=== PATIENT | female | born 1980 | race Caucasian/White ===

== ENCOUNTER 2024-10-17 11:59 | Observation (INO) ==
--- NOTE | 2024-10-17 12:30 | Emergency Department Note ---
Impression & Plan Kidney stone on right side, Nausea ED Provider Note Provider: Damion Callahan MD CHIEF COMPLAINT: Bladder and right flank pain, nausea vomiting HISTORY OF PRESENT ILLNESS: Patient is a 43-year-old female diagnosed with kidney stone yesterday presenting here today due to worsening pain and intractable nausea and vomiting since this morning. No fevers reported. Took her home Zofran and then oxycodone around 9 around 10 tried her meloxicam and vomited around here. Feels quite nauseous. Lower to right flank discomfort. Her bladder feels "distended" to her. States it feels worse than childbirth. Limited fluid intake overnight. No trauma. PAST MEDICAL HISTORY: As noted above MEDICATIONS: Reviewed home medications SOCIAL HISTORY: , dietitian PHYSICAL EXAM: GENERAL: alert and oriented seated up holding emesis bag appears uncomfortable at bedside Head: normocephalic and atraumatic EYES: No injection or icterus with some slight crying. NECK: Trachea midline. Supple. ENT: Mucous membranes pink and moist. LUNGS: Airway patent. No retractions. Breath sounds clear with good air entry bilaterally. HEART: Regular rate and rhythm. No chest wall tenderness ABDOMEN: Soft and non-tender, without guarding or rebound. SKIN: Acyanotic, warm, dry, without rashes EXTREMITIES: Without swelling, tenderness or deformity NEUROLOGICAL: No focal deficits. No aphasia. No facial droop or slurred speech. Ambulatory. PDMP was checked without noted issue. Patient's laboratory studies and imaging reviewed. Differential includes Renal colic, UTI, appendicitis, diverticulitis, mesenteric ischemia, aortic pathology, infections, inflammatory bowel disease, PUD, biliary pathology, as well as other pathologies. IMPRESSION/MEDICAL DECISION MAKING: Repeat basic blood work obtained here today. Reviewed blood work from yesterday including CT imaging showing a 2 mm distal right stone. UA sent today to exclude infection. Afebrile here. Significant nausea vomiting and discomfort. Given IV fluids, Zofran, morphine, and Toradol here. Do not feel there is an urgent need for repeat CT imaging. Bladder scan completed without evidence of significant urinary distention of the bladder. Blood work here without significant anemia or leukocytosis. No significant acute renal dysfunction or electrolyte abnormality. No transaminitis. Urinalysis does not appear infected somewhat concentrated. Again received IV fluids here. Pain is manageable now and nausea is improved. Discussed with her and her at bedside. Again failing oral medications at home and she does not feel comfortable going home at this time given this. Though she is improved at this point did reach out to the [facility] hospitalist as next up unassigned for further observation here. DIAGNOSIS: Right-sided kidney stone, nausea and vomiting DISPOSITION: Hospitalist will evaluate Patient was agreeable with this plan. Past Med/Surg History Problem List (Updated 10/17/24 @ 13:56 by Damion Callahan M.D.) Nausea (Acute) Kidney stone on right side (Acute) Social History Smoking Status: Never smoker Preferred Language: Indonesian Feels Safe at Home: Yes Allergies Allergies Allergy/AdvReac Type Severity Reaction Status Date / Time meperidine [From Demerol] Allergy Severe Rash and Unverified 10/17/24 14:35 Pain Home Meds Home Medications Medication Instructions Recorded Confirmed cetirizine 10 mg tablet (Zyrtec) 10 mg PO DAILY 10/17/24 10/17/24 ergocalciferol (vitamin D2) 1,250 50,000 unit PO WK 10/17/24 10/17/24 mcg (50,000 unit) capsule (Vitamin D2) escitalopram oxalate 5 mg tablet 5 mg PO DAILY 10/17/24 10/17/24 Previous Rx's Medication Instructions Recorded ondansetron 4 mg disintegrating 4 mg PO Q6H PRN nausea and 10/16/24 tablet vomiting #12 tabs oxycodone 5 mg tablet 5 mg PO Q6H PRN pain (scale score 10/16/24 7-10) #16 tabs Results & Data (ED) Vital Signs Vital Signs - 24 hr 10/17/24 12:07 10/17/24 13:00 10/17/24 14:00 Temperature 36.8 C Temperature Source Temporal Artery Scan Pulse Rate 68 Pulse Rate [Radial] 54 L 53 L Pulse Rhythm [Radial] Regular Respiratory Rate 19 18 18 Respiratory Effort / Characteristics Non-Labored Spontaneous Non-Labored Non-Labored Respiratory Depth Normal Normal Normal Respiratory Pattern Regular Regular Blood Pressure 120/66 Blood Pressure [Right Arm] 110/68 99/56 L Blood Pressure Mean 84 Blood Pressure Mean [Right Arm] 82 70 Pulse Oximetry 100 100 96 Oxygen Delivery Method Room Air Room Air Room Air Sepsis Recent Fever Within 48 Hours No Sepsis New/Unexplained Change in Mental Status No Sepsis Action Taken by Nursing No Action Required Laboratory Data 10/17/24 12:20 10/17/24 12:20 Lab Results 10/17/24 Range/Units 12:20 WBC 9.06 (4.8-10.8) K/ul RBC 4.68 (4.20-5.40) M/uL Hgb 14.1 (12.0-16.0) g/dl Hct 40.3 (37.0-47.0) % MCV 86.1 (80.0-100.0) fL MCH 30.1 (25.0-34.0) pg MCHC 35.0 (32.0-36.0) g/dL RDW Std Deviation 39.5 (36.4-46.3) fL RDW Coeff of Dragan 12.7 (11.5-14.5) % Plt Count 207 (130-400) K/uL MPV 10.0 (9.4-12.4) fL Immature Gran % (Auto) 0.3 % Neut % (Auto) 88.9 % Lymph % (Auto) 7.3 % [place] % (Auto) 2.9 % Eos % (Auto) 0.2 % Baso % (Auto) 0.4 % Neut # (Auto) 8.05 H (1.40-6.50) K/uL Lymph # (Auto) 0.66 L (1.20-3.40) K/uL [place] # (Auto) 0.26 (0.11-0.59) K/uL Eos # (Auto) 0.02 (0.00-0.50) K/uL Baso # (Auto) 0.04 (0.00-0.20) K/uL Immature Gran # (Auto) 0.03 (0.01-0.20) K/uL Sodium 138 (136-145) mmol/L Potassium 3.8 (3.5-5.1) mmol/L Chloride 105 (98-107) mmol/L Carbon Dioxide 26 (21-32) mmol/L Anion Gap 7 (3-11) BUN 12 (6-23) mg/dl Creatinine 1.07 (0.6-1.2) mg/dl Est Cr Clr Drug Dosing 65.2 ml/min eGFR 65.69 BUN/Creatinine Ratio 11.2 (10-20) Glucose 136 H (70-99(Fasting)) mg/dl Calcium 8.9 (8.6-10.3) mg/dl Total Bilirubin 0.6 (0.2-1.0) mg/dl AST 17 (13-39) U/L ALT 17 (7-52) U/L Alkaline Phosphatase 59 (34-104) U/L Total Protein 6.5 (6.0-8.3) gm/dl Albumin 4.3 (3.4-5.0) gm/dl Globulin 2.2 L (2.5-4.0) gm/dl Albumin/Globulin Ratio 2.0 (0.9-2) Urine Color Yellow Urine Appearance Cloudy A (Clear) Urine pH 5.5 (4.5-7.5) Ur Specific [place] >= 1.030 (1.000-1.030) Urine Protein 1+ H (Negative) Urine Glucose (UA) Negative (Negative) Urine Ketones 1+ H (Negative) Urine Blood Trace-intact H (Negative) Urine Nitrite Negative (Negative) Urine Bilirubin Negative (Negative) Urine Urobilinogen Negative (Negative) Ur Leukocyte Esterase Trace H (Negative) Urine RBC 0-2 (0-2) /hpf Urine WBC 0-5 (0-5) /hpf Ur Epithelial Cells 6-10 H (0-2) /hpf Amorphous Sediment Present A (None Prsent) Urine Bacteria None Seen (None Seen) Urine Comment Administered Medications Discontinued Medications Sodium Chloride (Nss) 1,000 mls @ 999 mls/hr IV .Q1H1M ONE Stop: 10/17/24 13:27 Last Infusion: 10/17/24 14:27 Dose: Infused Documented By: Admin: 10/17/24 12:31 Dose: 999 mls/hr Documented By: ELAN Ketorolac Tromethamine (Ketorolac Tromethamine 15 Mg/Ml Vial) 10 mg IV NOW ONE Stop: 10/17/24 12:28 Last Admin: 10/17/24 12:31 Dose: 10 mg Documented By: ELAN Morphine Sulfate (Morphine Sulfate 4 Mg/Ml 1 Ml Carp\\Vial) 4 mg IV NOW STA Stop: 10/17/24 12:28 Last Admin: 10/17/24 12:31 Dose: 4 mg Documented By: ELAN Morphine Sulfate (Morphine Sulfate 4 Mg/Ml 1 Ml Carp\\Vial) 4 mg IV NOW STA Stop: 10/17/24 13:00 Last Admin: 10/17/24 13:12 Dose: 4 mg Documented By: ELGIN Ondansetron HCl (Ondansetron Inj 2 Mg/Ml 2 Ml Vial) 4 mg IV NOW STA Stop: 10/17/24 12:28 Last Admin: 10/17/24 12:31 Dose: 4 mg Documented By: ELAN Discharge Plan Visit Data Chief Complaint: Kidney Stone Stated Complaint: KIDNEY STONE,PAIN,UNABLE TO VOID,NAUSEA,VOMITING ED Provider: Damion Callahan Discharge Problem: Kidney stone on right side, Nausea Patient Disposition: Being Evaluated by Hospitalist Condition: Fair Forms Stand Alone Forms: [facility] [place] Prescriptions Prescriptions: No Action oxycodone 5 mg tablet 5 mg PO Q6H PRN (Reason: pain (scale score 7-10)) Qty: 16 0RF Rx Instructions: May cause drowsiness ondansetron 4 mg tablet,disintegrating 4 mg PO Q6H PRN (Reason: nausea and vomiting) Qty: 12 0RF cetirizine [Zyrtec] 10 mg Tablet 10 mg PO DAILY ergocalciferol (vitamin D2) [Vitamin D2] 1,250 mcg (50,000 unit) capsule 50,000 unit PO WK Rx Instructions: Sunday escitalopram oxalate 5 mg tablet 5 mg PO DAILY Referrals Referrals: Dominique Cummings NP [Primary Care Provider] -
[2024-10-17] MEDS: KETOROLAC TROMETHAMINE 15 MG/ML VIAL IV ONE ×2 (12:31→21:44)
[2024-10-17] MEDS: ONDANSETRON INJ 2 MG/ML 2 ML VIAL IV STA (12:31)
[2024-10-17] MEDS: MoRPHine SULFATE 4 MG/ML 1 ML CARP\\VIAL IV STA ×2 (12:31→13:12)
[2024-10-17] MEDS: SODIUM CHLORIDE 0.9% 1,000 ML IV ONE (12:31)
[2024-10-17 12:37] LABS: Appearance Urine Cloudy (Clear); Bilirubin Urine Negative (Negative); Blood Urine Trace-intact (Negative); Color Urine Yellow; Glucose Urine UA Negative (Negative); Ketones Urine 1+ (Negative); Leukocyte Esterase Urine Trace (Negative); Nitrite Urine Negative (Negative); Protein Urine 1+ (Negative); Specific Gravity Urine >= 1.030 (1.000-1.030); Urobilinogen Urine Negative (Negative); pH Urine 5.5 (4.5-7.5)
[2024-10-17 12:38] LABS: Basophils # (auto) 0.04 K/uL (0.00-0.20); Basophils % (auto) 0.4 %; Eosinophils # (auto) 0.02 K/uL (0.00-0.50); Eosinophils % (auto) 0.2 %; Hematocrit (blood only) 40.3 % (37.0-47.0); Hemoglobin 14.1 g/dl (12.0-16.0); Immature Granulocytes # (auto) 0.03 K/uL (0.01-0.20); Immature Granulocytes % (auto) 0.3 %; Lymphocytes # (auto) 0.66 K/uL (1.20-3.40); Lymphocytes % (auto) 7.3 %; Mean Corpuscular Hemoglobin 30.1 pg (25.0-34.0); Mean Corpuscular Volume 86.1 fL (80.0-100.0); Monocytes # (auto) 0.26 K/uL (0.11-0.59); Monocytes % (auto) 2.9 %; Neutrophils # (auto) 8.05 K/uL (1.40-6.50); Neutrophils % (auto) 88.9 %; Platelet Count 207 K/uL (130-400); RDW Coefficient of Variation 12.7 % (11.5-14.5); RDW Standard Deviation 39.5 fL (36.4-46.3); Red Blood Count 4.68 M/uL (4.20-5.40); White Blood Count 9.06 K/ul (4.8-10.8)
[2024-10-17 13:00] LABS: BUN Creatinine Ratio 11.2 (10-20); Bilirubin,Total 0.6 mg/dl (0.2-1.0); Calcium 8.9 mg/dl (8.6-10.3); Creatinine Clr Calc Pharmacy 65.2 ml/min; Globulin 2.2 gm/dl (2.5-4.0); Potassium 3.8 mmol/L (3.5-5.1); Total Protein 6.5 gm/dl (6.0-8.3)
[2024-10-17 13:06] LABS: Amorphous Sediment Urine Present (None Prsent); Bacteria Urine None Seen (None Seen); RBC Urine 0-2 /hpf (0-2); WBC Urine 0-5 /hpf (0-5)
--- NOTE | 2024-10-17 14:53 | History & Physical Report ---
Date of Service October 17, 2024 Assessment & Plan (1) Kidney stone on right side: (2) Depression: (3) Allergic rhinitis: (4) Exercise-induced asthma: Plan 43 year old female with PMH significant for depression, allergic rhinitis, exercise induced asthma, and migraines who presents to the ED today with worsening flank pain and admitted for right kidney stone. Kidney stone on right side Patient with severe flank pain, N/V No leukocytosis, fevers, UA not infectious CT abdomen yesterday revealed obstructing calculus of 2mm in right vesicoureteric junction with hydronephrosis Clear liquid diet and IVF NPO at midnight Pain/nausea control with IV zofran, tylenol, morphine, flomax Strain urine Consult urology: appreciate recs Elevated blood sugar 136 on admission Obtain A1C in am Depression Recently started on lexapro Has not been taking due to illness Prefers to hold while inpt Allergic rhinitis Zyrtec as needed Exercise-induced asthma Well controlled DVT Prophylaxis: SCDs Code Status: FULL CODE - As per discussion at bedside with the patient. PCP: Dominique Cummings NP Disposition: admit to main campus medical center Patient seen in collaboration with Dr Hidalgo. Please see addendum. I spent a total of 60 minutes coordinating, documenting and providing care for this patient excluding time spent in the performance of separately billed services or time spent by another provider/QHP. Admission and Anticipated Discharge Date Admission Date: 10/17/2024 History of Present Illness Chief Complaint: flank pain Primary Care Provider: Dominique Cummings NP 43 year old female with PMH significant for depression, allergic rhinitis, exercise induced asthma, and migraines who presents to the ED today with worsening flank pain. Patient was recently admitted to [facility] [address] for sepsis and pneumonia and had an incidental finding of a right sided kidney stone on imaging. She reports she started feeling bladder spasms earlier this week but was otherwise doing well. Two nights ago around 0400 the patient reports severe right flank pain with nausea and vomiting. She notes the pain is intermittent but when present is debilitating and notes it feels worse than child labor. She was seen in our ED yesterday and underwent CT abdomen which revealed an obstructing 2mm right kidney stone with hydronephrosis. She was discharged home on zofran and oxycodone. Patient reports that she tried these medications as well as tylenol but has not been able to keep them down due to vomiting and therefore is still in significant pain. She returned to the ED today because of this. She denies fevers, chills, chest pain, SOB, diarrhea, dysuria, weakness. Allergies Allergy/AdvReac Type Severity Reaction Status Date / Time meperidine [From Demerol] Allergy Severe Rash and Unverified 10/17/24 14:35 Pain Home Medications Medication Instructions Recorded Confirmed Type ondansetron 4 mg disintegrating 4 mg PO Q6H PRN nausea and 10/16/24 10/17/24 Rx tablet vomiting #12 tabs oxycodone 5 mg tablet 5 mg PO Q6H PRN pain (scale score 10/16/24 10/17/24 Rx 7-10) #16 tabs cetirizine 10 mg tablet (Zyrtec) 10 mg PO DAILY 10/17/24 10/17/24 History ergocalciferol (vitamin D2) 1,250 50,000 unit PO WK 10/17/24 10/17/24 History mcg (50,000 unit) capsule (Vitamin D2) escitalopram oxalate 5 mg tablet 5 mg PO DAILY 10/17/24 10/17/24 History Past Med/Surg History Problem List (Updated 10/17/24 @ 17:07 by BARBARA Michael) Kidney stone on right side (Acute) Medical History (Updated 10/17/24 @ 17:07 by BARBARA Michael) Allergic rhinitis Migraines Exercise-induced asthma Depression Nausea Surgical History (Updated 10/17/24 @ 17:07 by BARBARA Michael) History of wisdom tooth extraction History of bilateral fallopian tube excision Family History (Updated 10/17/24 @ 17:08 by BARBARA Michael) Grandmother (Maternal) Mitral valve prolapse Grandfather (Paternal) Stroke Social History (Updated 10/17/24 @ 17:08 by BARBARA Michael) Smoking Status: Never smoker Hx Alcohol Use: No Hx Substance Use: No Preferred Language: Nauruan Current Living Situation: Family current occupational status: employed current occupation: dietitian Feels Safe at Home: Yes Assistive Devices: None Review of Systems Review of Systems: All systems reviewed & are unremarkable except as noted in HPI & below Physical Exam Physical Exam: General/Psych: WD/WN, ill appearing, sitting up in bed, conversing easily Head: normocephalic, atraumatic Eyes: normal inspection, PERRL, conjunctivae pink, anicteric sclerae ENT: external ear and nose normal, oropharynx normal Neck: normal visual inspection, trachea midline Respiratory: normal respiratory effort, lungs clear to auscultation, no wheeze/rales/rhonchi, no accessory muscle use Cardiovascular: regular rate and rhythm, no murmur/rub/gallop Extremities: no cyanosis or clubbing, normal peripheral pulses, no BLE edema Abdomen/GI: normal bowel sounds, soft, no hepatosplenomegaly, tenderness on palpation of right flank Neurologic/MSK: A+Ox3, motor strength 5/5, moves all extremities Skin: no rashes, normal color, warm and dry Results & Data Results & Data Vital Signs (Past 12 Hours) Vital Signs Temp Pulse Pulse Resp BP BP Pulse Ox 10/17/24 14:00 53 L 18 99/56 L 96 10/17/24 13:00 54 L 18 110/68 100 10/17/24 12:07 36.8 C 68 19 120/66 100 O2 Del Method 10/17/24 14:00 Room Air 10/17/24 13:00 Room Air 10/17/24 12:07 Room Air Laboratory Results Short CBC 10/17/24 Range/Units 12:20 WBC 9.06 (4.8-10.8) K/ul Hgb 14.1 (12.0-16.0) g/dl Hct 40.3 (37.0-47.0) % Plt Count 207 (130-400) K/uL BMP 10/17/24 12:20 Sodium 138 Potassium 3.8 Chloride 105 Carbon Dioxide 26 BUN 12 Creatinine 1.07 Glucose 136 H Calcium 8.9 Liver Function 10/17/24 Range/Units 12:20 Total Bilirubin 0.6 (0.2-1.0) mg/dl AST 17 (13-39) U/L ALT 17 (7-52) U/L Alkaline Phosphatase 59 (34-104) U/L Albumin 4.3 (3.4-5.0) gm/dl Urine 10/17/24 Range/Units 12:20 Urine Color Yellow Urine Appearance Cloudy A (Clear) Urine pH 5.5 (4.5-7.5) Ur Specific [place] >= 1.030 (1.000-1.030) Urine Protein 1+ H (Negative) Urine Glucose (UA) Negative (Negative) I have independently reviewed and interpreted patient's admitting labs including CBC, CMP, UA Code Status & VTE Plan Code Status Full Code Supervising Physician Co-Signing Physician Notes 43-year-old lady with PMH of anxiety presents with worsening flank pain since 1 day. Patient reports right flank pain and right lower belly pain since yesterday morning, CBC stated ED yesterday and was discharged on Zofran and oxycodone. Patient reports continued worsening of pain associated with nausea and vomiting and poor appetite. Patient denies fever or pain or burning while passing urine. Labs and imaging reviewed. Labs fairly WNL. UA negative for UTI. CTAP done yesterday with right kidney stone associated hydronephrosis and hydroureter. Obstructive calculus of 2 mm at right vesicoureteric junction. Continue with pain management, IV fluid, bowel regimen, tamsulosin. Urology consult. Strain urine. Get A1c given elevated blood glucose. On exam: Right lower belly and flank tenderness, on room air, NAD, rest of the examination as above. Time spent independently: 22 minutes. I have seen and examined the patient and have discussed the case with the provider above. I agree with the assessment and plan as stated.
[2024-10-17] MEDS: SODIUM CHLORIDE 0.9% 1,000 ML IV SCH (17:11)
[2024-10-17] MEDS: ACETAMINOPHEN 1,000 MG/100 ML VIAL IV PRN (17:11)
[2024-10-17] MEDS ORDERED: CETIRIZINE HCL 10 MG TABLET PO PRN (19:21)
[2024-10-17] MEDS: TAMSULOSIN HCL 0.4 MG CAP PO SCH (20:03)
[2024-10-17] MEDS: MoRPHine SULFATE 2 MG/ML CARP IV PRN (20:03)
[2024-10-17] MEDS: ONDANSETRON INJ 2 MG/ML 2 ML VIAL IV PRN (20:15)
[2024-10-17] MEDS ORDERED: POLYETHYLENE (MIRALAX) 17 GM PACK PO PRN (21:31)
[2024-10-17] MEDS: POLYETHYLENE (MIRALAX) 17 GM PACK PO STA (21:43)
[2024-10-17] MEDS: DOCUSATE SODIUM/SENNA 50/8.6MG TAB PO SCH (21:44)
[2024-10-17] MEDS: oxyCODONE HCL IR 5 MG TAB (IMMEDIATE RELEASE) PO PRN (23:39)
[2024-10-18 06:22] LABS: Hematocrit (blood only) 34.5 % (37.0-47.0); Hemoglobin 11.6 g/dl (12.0-16.0); Mean Corpuscular Hemoglobin 29.6 pg (25.0-34.0); Mean Corpuscular Hgb Conc 33.6 g/dL (32.0-36.0); Mean Platelet Volume 9.8 fL (9.4-12.4); Platelet Count 143 K/uL (130-400); RDW Coefficient of Variation 12.8 % (11.5-14.5); RDW Standard Deviation 41.1 fL (36.4-46.3); Red Blood Count 3.92 M/uL (4.20-5.40); White Blood Count 6.28 K/ul (4.8-10.8)
[2024-10-18 06:52] LABS: BUN Creatinine Ratio 8.4 (10-20); Calcium 8.3 mg/dl (8.6-10.3); Creatinine Clr Calc Pharmacy 58.1 ml/min; Potassium 4.2 mmol/L (3.5-5.1)
[2024-10-18 07:19] LABS: Estimated Average Glucose 108 mg/dl; Hemoglobin A1C 5.4 % (4.5-5.6)
--- NOTE | 2024-10-18 08:15 | Urology Consultation ---
Date of Consultation October 18, 2024 Assessment & Plan (1) Kidney stone on right side: (2) Ureteral stone: (3) Migraines: (4) Nausea & vomiting: Plan Patient with obstructing 2 mm stone in the distal ureter on the right causing significant hydronephrosis. Patient presented with severe pain and worsening issues on Eduard presented to the ER again on Sunday with worsening of issues since then. Patient has never had stones before. No significant family history. Pain has been severe and bothersome the medications have been helpful in managing the pain but is still having major episodes. Has not had significant blood in the urine has not had any major relief of pain. Patient has not had any severe fevers or chills. Additionally patient has had considerable nausea with vomiting. The pain becomes so severe the patient starts having significant episodes of vomiting. Patient did state pain is significantly more worse than her experience with childbirth. Patient independently assessed, examined, interviewed, and evaluated. Patient's vitals and labs were all reviewed. Pertinent values in the HPI and plan section. Hemoglobin 11.6 white count is not elevated was found to be 6.28. Creatinine 1.19. Is mildly of elevated above baseline. Imaging was reviewed interpreted by myself. Patient with obstructing distal stone causing hydronephrosis and hydroureter. Otherwise agree with read. Vitals were reviewed. Blood pressure 101/65, pulse 45, respiration 16, oxygen saturation 97% on room air. Patient's temperature is 36.6. Has not had considerable fever since first assessment. Discussed findings extensively with patient. Reviewed with nursing and care team. Patient's complicated medical and surgical history was reviewed and summarized above. Patient's surgical, medical, social, and family history were all reviewed with pertinent values as above. Discussed patient's current diagnosis as well as concerns and issues. Reviewed different options moving forward. Discussed potential risks and benefits as well as possible options and concerns. Reviewed potential surgical options and interventions. Discussed potential issues and concerns related to intervention. Risk and benefits were discussed extensively with patient and any available family. Discussed potential risks related to anesthesia. Discussed risks of bleeding infection and injury. Discussed options for conservative measure and maximum expulsion medical therapy and symptom controlled. Discussed ESWL. Discussed Ureteroscopy with extraction and/or laser lithotripsy. Risks and benefits were discussed. Stone free rates were also discussed as well as possibility of multiple procedures. Ureteral stents were discussed as well as post-operative issues and pain management. All questions were answered. Reviewed extensively options moving forward. Did recommend continued aggressive hydration with IV fluids and maintaining n.p.o. status. Would recommend continued utilization of medication for symptom control additionally would continue to use medications for possible stone passage. Will work on trying to encourage spontaneous passage however patient has had now 48 hours of severe issues with nearly intractable nausea and episodes of vomiting. Pain has continued to be severe and bothersome. Reviewed possible options for intervention with ureteroscopy and stent placement for stone extraction. Risks and benefits discussed at length for procedure. These include bleeding, infection, injury to surrounding tissues or organs, and risks associated with anesthesia. Patient states understanding and agrees to proceed. Will sign consent and proceed. Plan for cystoscopy with possible right ureteroscopy stone treatment and stent History of Present Illness Attending Physician: Rasheed Patel MD History of Present Illness New consultation for patient with stone, discomfort, obstruction, and ill feelings. Patient for started having issues on prior to this had pressure in the bladder region but was unsure if it was related to UTI or other issue. Started to have more severe issues and since has had severe nausea pain vomiting secondary to pain and considerable bother. Patient developed sudden onset of pain into flank going down and radiating into groin and back in waves comes and goes. Can be severe at times. Pain can get so intense the patient becomes nauseous and sometimes vomits. Prior to this has never had stone. Has been very active. Discussed and reviewed patient's family history for any history of stone disease. No significant family history. Also, discussed patient's medical surgery history especially related to any history of urinary issues or stone disease. Patient presented again on Sunday secondary to worsening issues increasing nausea and vomiting and worsening pain. Found to have persistent pain issues and likely obstruction secondary to 2 mm stone in the distal right ureter. Patient was admitted and is undergoing observation. Patient had been tolerating medication however this is only covering the symptoms. Has not had major improvement. Still having considerable pain and nausea. Has not had anything solid or major to eat in the last 48 hours due to severity of issues Allergies Allergy/AdvReac Type Severity Reaction Status Date / Time meperidine [From Demerol] Allergy Severe Rash and Unverified 10/17/24 14:35 Pain Home Medications Medication Instructions Recorded Confirmed Type ondansetron 4 mg disintegrating 4 mg PO Q6H PRN nausea and 10/16/24 10/17/24 Rx tablet vomiting #12 tabs oxycodone 5 mg tablet 5 mg PO Q6H PRN pain (scale score 10/16/24 10/17/24 Rx 7-10) #16 tabs cetirizine 10 mg tablet (Zyrtec) 10 mg PO DAILY 10/17/24 10/17/24 History ergocalciferol (vitamin D2) 1,250 50,000 unit PO WK 10/17/24 10/17/24 History mcg (50,000 unit) capsule (Vitamin D2) escitalopram oxalate 5 mg tablet 5 mg PO DAILY 10/17/24 10/17/24 History Patient History Medical History Allergic rhinitis Migraines Exercise-induced asthma Depression Nausea Surgical History History of wisdom tooth extraction History of bilateral fallopian tube excision Family History Grandmother (Maternal) Mitral valve prolapse Grandfather (Paternal) Stroke Social History Smoking Status: Never smoker Second Hand Exposure: No; Do You Dip or Chew Tobacco: No; Tobacco Cessation Education Requested by Patient: No Hx Alcohol Use: Yes Hx Substance Use: No Preferred Language: Albanian Communication Ability: Effective Co Teacher Required: No Beliefs That Will Affect Care: None Current Living Situation: Spouse current occupational status: employed current occupation: dietitian Other Information That Helps Us Care for You: No Feels Safe at Home: Yes Safety Concerns: Feels Safe At This Time Assistive Devices: None Review of Systems Review of Systems: All systems reviewed & are unremarkable except as noted in HPI & below Physical Exam Physical Exam: General: Alert and oriented x 3 in no acute distress. Patient is well nourished and well kept. HEENT: Normocephalic Atraumatic. Inspection normal. Cranial Nerves 2-12 Grossly intact. Nares are clear. Neck is supple. Normal inspection of face. Normal inspection of neck. Neurologic: No deficits on inspection. Baseline for motor function and sensory. Psychologic: Normal affect. Respiratory: Nonlabored. No use of accessory muscles. No tachypnea or dyspnea. Cardiovascular: No tachycardia Skin: Pump Back and Dry. No rashes or visible lesions. Extremities: Moving without issues. No motor deficits on inspection Lymphatics: No edema Abdomen: Soft Non-distended. No rebound or guarding. Results & Data Vital Signs (Past 12 Hours) Vital Signs Temp Pulse Pulse Resp BP Pulse Ox O2 Del Method 10/18/24 07:30 45 L 10/18/24 06:23 52 L 16 101/65 97 Room Air 10/18/24 03:12 36.6 C 63 18 103/56 L 95 Room Air 10/17/24 22:45 36.6 C 53 L 18 98/59 L 94 Room Air 10/17/24 22:00 44 L PG Care Time/CCT Total # of Minutes Spent Total Time Spent with Patient: Total time spent is greater than 50% in coordination of care (as documented) at patient's floor/unit and/or counseling patient: Coding Level of Care Code 05063 IN/OBS CONSULT LVL 5,80M Diagnoses Kidney stone on right side N20.0 Ureteral stone N20.1 Migraines G43.909 Nausea & vomiting R11.2
--- NOTE | 2024-10-18 08:32 | Anesthesiology Consultation ---
Date of Service October 18, 2024 Assessment & Plan (1) Encounter for pre-operative examination: Chart Review Chart Review: Acceptable Risk for Surgery and Patient NOT seen in Pre Admission Testing Consults Requested none History Surgery Operation Date: 10/18/24 10:00 Proposed Procedures p Cystoscopy(Right) - Andrew Watt DO s Ureteral Stent Insertion/Removal(Right) - Andrew Watt DO Height/Weight Height: 5 ft 7 in Weight: 72.8 kg Allergies Allergy/AdvReac Type Severity Reaction Status Date / Time meperidine [From Demerol] Allergy Severe Rash and Unverified 10/17/24 14:35 Pain Medications Home Medications Medication Instructions Recorded Confirmed Last Taken ondansetron 4 mg disintegrating 4 mg PO Q6H PRN nausea and 10/16/24 10/17/24 10/16/24 tablet vomiting #12 tabs oxycodone 5 mg tablet 5 mg PO Q6H PRN pain (scale score 10/16/24 10/17/24 10/16/24 7-10) #16 tabs cetirizine 10 mg tablet (Zyrtec) 10 mg PO DAILY 10/17/24 10/17/24 2 Days Ago ~10/15/24 ergocalciferol (vitamin D2) 1,250 50,000 unit PO WK 10/17/24 10/17/24 10/12/24 mcg (50,000 unit) capsule (Vitamin D2) escitalopram oxalate 5 mg tablet 5 mg PO DAILY 10/17/24 10/17/24 2 Days Ago ~10/15/24 Active Medications Generic Name Dose Route Start Last Admin Trade Name Freq PRN Reason Stop Dose Admin Sodium Chloride 1,000 mls @ 125 mls/hr 10/17/24 17:00 10/18/24 06:00 Nss IV 10/18/24 22:23 80 mls/hr .Q8H ADA Administration Acetaminophen 1,000 mg in 100 mls @ 400 mls/hr 10/17/24 17:00 10/18/24 02:05 Ofirmev IV 10/20/24 16:59 Infused Q8H PRN Infusion Mild Pain (Scale 1, 2, 3) Morphine Sulfate 2 mg 10/17/24 17:00 10/18/24 06:20 Morphine Sulfate 2 Mg/Ml Carp IV 10/31/24 16:59 2 mg Q4 PRN Administration Mod-Sev Pain (Scale 4-10) Ondansetron HCl 4 mg 10/17/24 19:21 10/17/24 20:15 Ondansetron Inj 2 Mg/Ml 2 Ml Vial IV 11/16/24 19:20 4 mg Q6H PRN Administration Nausea Oxycodone HCl 5 - 10 mg 10/17/24 21:31 10/17/24 23:39 Oxycodone Hcl Ir 5 Mg Tab (Immediate Release) PO 10/31/24 21:30 10 mg QID PRN Administration Pain Senna/Docusate Sodium 1 tab 10/17/24 21:35 10/17/24 21:44 Docusate Sodium/Senna 50/8.6mg Tab PO 11/16/24 21:34 1 tab QAM ADA Administration Tamsulosin HCl 0.4 mg 10/17/24 21:00 10/17/24 20:03 Tamsulosin Hcl 0.4 Mg Cap PO 11/16/24 20:59 0.4 mg HS ADA Administration Past Medical History Medical History Allergic rhinitis Migraines Exercise-induced asthma Depression Nausea Past Family History Family History Grandmother (Maternal) Mitral valve prolapse Grandfather (Paternal) Stroke Past Surgical History Surgical History History of wisdom tooth extraction History of bilateral fallopian tube excision Social History Smoking Status: Never smoker Do You Dip or Chew Tobacco: No Hx Alcohol Use: Yes alcohol intake frequency: holidays/special occasions only Hx Substance Use: No substance use type: does not use Physical Exam Vital Signs Last Vital Signs Temp 97.9 F 10/18/24 03:12 Pulse 45 L 10/18/24 07:30 Resp 16 10/18/24 06:23 BP 101/65 10/18/24 06:23 Pulse Ox 97 10/18/24 06:23 O2 Del Method Room Air 10/18/24 06:23 Testing Laboratory Results 10/18/24 05:52 10/18/24 05:52 Hemoglobin A1c 5.4 % (4.5-5.6) 10/18/24 05:52 Urine Color Yellow 10/17/24 12:20 Urine Appearance Cloudy (Clear) A 10/17/24 12:20 Urine pH 5.5 (4.5-7.5) 10/17/24 12:20 Ur Specific [place] >= 1.030 (1.000-1.030) 10/17/24 12:20 Urine Protein 1+ (Negative) H 10/17/24 12:20 Urine Glucose (UA) Negative (Negative) 10/17/24 12:20 Urine Ketones 1+ (Negative) H 10/17/24 12:20 Urine Nitrite Negative (Negative) 10/17/24 12:20 Ur Leukocyte Esterase Trace (Negative) H 10/17/24 12:20 Urine RBC 0-2 /hpf (0-2) 10/17/24 12:20 Urine WBC 0-5 /hpf (0-5) 10/17/24 12:20 Ur Epithelial Cells 6-10 /hpf (0-2) H 10/17/24 12:20
[2024-10-18] MEDS ORDERED: MIDAZOLAM HCL 1 MG/ML 2ML VIAL ONE (09:48)
[2024-10-18] MEDS ORDERED: fentaNYL citrate PF 100 MCG/2 ML VIAL ONE ×2 (09:48→10:25)
[2024-10-18] MEDS ORDERED: PROPOFOL IV EMULSION 10 MG/ML 20 ML VIAL IV ONE ×2 (09:48→11:22)
[2024-10-18] MEDS ORDERED: ONDANSETRON INJ 2 MG/ML 2 ML VIAL ONE (10:56)
[2024-10-18] MEDS ORDERED: GLYCOPYRROLATE 0.2 MG/ML VIAL ONE (11:19)
[2024-10-18] MEDS ORDERED: ceFAZolin 330 MG/ML 1 GM VIAL ONE (11:19)
[2024-10-18] MEDS ORDERED: KETOROLAC 30 MG/ML VIAL ONE (11:29)
--- NOTE | 2024-10-18 11:35 | Hospitalist Progress Note ---
Date of Service October 18, 2024 Assessment & Plan (1) Kidney stone on right side: (2) Depression: (3) Allergic rhinitis: (4) Exercise-induced asthma: Plan 43 year old female with PMH significant for depression, allergic rhinitis, exercise induced asthma, and migraines who presents to the ED today with worsening flank pain and admitted for right kidney stone. Obstructive Uropathy Secondary to right ureteral stone --CT ABD:Tiny concretion noted in right renal mid calyx. Right kidney shows hydronephrosis and hydroureter up to an obstructing calculus of size 2 mm is noted in right vesicoureteric junction. --S/P Cystoscopy with Right Retrograde Pyelogram, Ureteroscopy, Stone Basket Extraction, Right Ureteral Stent Insertion by on 10/18/24 --Continue IV fluids, Flomax, pain control as needed Appreciate urology help Needs follow-up with urology on discharge Antiemetics as needed Elevated blood sugar HbA1c 5.4 Depression Recently started on lexapro Has not been taking due to illness Prefers to hold while inpt Resume Lexapro as outpatient Allergic rhinitis Zyrtec as needed Exercise-induced asthma Well controlled DVT Prophylaxis: SCDs Code Status: Full Code Disposition Expected discharge home Admission and Anticipated Discharge Date Admission Date: October 17, 2024 Subjective Patient is seen and examined at bedside States having right flank pain Plan for ureteral stent placement today Denies any dysuria, hematuria, dyspnea, dizziness Admits to have some nausea associated with pain Discussed with patient and family at bedside No other complaints Review of Systems Review of Systems: All systems reviewed & are unremarkable except as noted in Subjective Physical Exam Physical Exam: Physical Exam: Vitals signs as noted above General Appearance:Moderately built and nourished, no apparent distress Head: normocephalic, Atraumatic Eyes: normal inspection, EOMI Neck: supple, Trachea midline Respiratory/Chest: Normal breath sounds, CTA, No accessory muscle use Cardiovascular: S1, S2, No murmur Abdomen/GI:Soft, R flank tender, Bowel sounds present Extremities/Musculoskeletal:normal inspection, Trace edema Neurologic/Psych:AAOX3, grossly no focal neurological deficits Skin: normal color, warm Results & Data Results & Data Vital Signs (Past 12 Hours) Vital Signs Temp Pulse Pulse Resp BP Pulse Ox O2 Del Method 10/18/24 07:30 45 L 10/18/24 06:23 52 L 16 101/65 97 Room Air 10/18/24 03:12 36.6 C 63 18 103/56 L 95 Room Air Laboratory Results Short CBC 10/17/24 10/18/24 Range/Units 12:20 05:52 WBC 9.06 6.28 (4.8-10.8) K/ul Hgb 14.1 11.6 L (12.0-16.0) g/dl Hct 40.3 34.5 L (37.0-47.0) % Plt Count 207 143 (130-400) K/uL BMP 10/17/24 10/18/24 12:20 05:52 Sodium 138 138 Potassium 3.8 4.2 Chloride 105 108 H Carbon Dioxide 26 26 BUN 12 10 Creatinine 1.07 1.19 Glucose 136 H 104 H Calcium 8.9 8.3 L Liver Function 10/17/24 Range/Units 12:20 Total Bilirubin 0.6 (0.2-1.0) mg/dl AST 17 (13-39) U/L ALT 17 (7-52) U/L Alkaline Phosphatase 59 (34-104) U/L Albumin 4.3 (3.4-5.0) gm/dl Urine 10/17/24 Range/Units 12:20 Urine Color Yellow Urine Appearance Cloudy A (Clear) Urine pH 5.5 (4.5-7.5) Ur Specific [place] >= 1.030 (1.000-1.030) Urine Protein 1+ H (Negative) Urine Glucose (UA) Negative (Negative)
--- NOTE | 2024-10-18 11:40 | Operative Report ---
PG Post Operative Report Pre & Post Diagnosis Operation Date: 10/18/24 10:00 Pre-Op Diagnosis: Right Ureteral stone Post-Op Diagnosis: Right Ureteral stone I identified the patient and participated in the time-out.: Yes Procedure Operation Date: 10/18/24 10:00 Actual Procedures Cystoscopy with Right Retrograde Pyelogram, Ureteroscopy, Stone Basket Extrac tion, Right Ureteral Stent Insertion(Right) - Andrew Watt DO Surgeon Andrew Watt, II, DO Research Epidemiologist None Estimated Blood Loss 1 Findings Consistent with Post-Op Diagnosis Stone basketed and removed. Specimens Stone - Right ureter Drains 4.8 Fr x 24 cm Right stent Anesthesia Type General Complications none Disposition Disposition: Recovery Room Indications Patient with bothersome stones. Risks and benefits discussed at length. Description of Procedure Patient was consented and brought back to the operating room. Patient was placed under anesthesia in the supine position and moved to the dorsal lithotomy position. Patient was prepped and draped in the regular sterile fashion. A time out was completed. A 30degree Cystoscope was placed into the bladder and the entire bladder was examined. The UO's were identified. The UO was cannulized with a catheter and a retrograde pyelogram was completed. A wire was then placed. The Rigid ureteroscope was taken into the ureter. The stone was identified. The stone appeared obstructing with stone turned on the long axis causing irritation along the ureteral wall. Was approx 3-4 mm from the UO. A basket was selected. The stone was able to be grasped and turned on the short axis. The stone was then removed and sent for analysis. The entire area was once again examined. No residual stones or areas of concern were noted. The scope was slowly removed with the wire left in place. Contrast was placed through the scope for a pyelogram to assist in stent placement. The entire ureter was examined as the scope was slowly removed. No obstructions or other areas of concern were noted. With the wire in place, a 4.8 Fr Double J stent was placed. It was confirmed with fluoroscopy. With the stent in place, the bladder was emptied. The scope was removed. The patient was cleaned, aroused from anesthesia, and transferred to the pacu in stable condition having tolerated the procedure well with no complications. I was present and participated in all aspects of the procedure. The patient will be monitored in the PACU until transferred. Can followup next week for stent removal in office. I attest to the content of the Intraoperative Record and any orders documented therein. Any exceptions are noted below.
--- NOTE | 2024-10-18 11:43 | Fluoroscopy Report ---
FL retrograde includes kub CLINICAL HISTORY: RTright-sided cystourethrogram COMPARISON STUDY: CT 10/16/2024 FLUOROSCOPY TIME: 15.8 seconds FLUOROSCOPY IMAGES: 2 EXPOSURE DOSE: 2.08 mGy FINDINGS: Status post placement of a right ureteral stent which appears to be secondary positioning n o ureteral calculi identified on this exam. IMPRESSION: Fluoroscopic assistance as above. ACT 112: Negative or not required by law. Electronically signed by: Antwan Tan M.D. 10/18/2024 11:41 AM
[2024-10-18] MEDS ORDERED: ONDANSETRON INJ 2 MG/ML 2 ML VIAL IV PRN (11:55)
[2024-10-18] MEDS ORDERED: ePHEDrine sulfate 50 MG/ML AMP IV PRN (11:55)
[2024-10-18] MEDS ORDERED: ATROPINE SULFATE 0.1 MG/ML 10ML SYR IV PRN (11:55)
[2024-10-18] MEDS ORDERED: fentaNYL citrate PF 100 MCG/2 ML VIAL IV PRN (11:55)
[2024-10-18] MEDS: PHENAZOPYRIDINE HCL 200 MG TAB ONE (12:00)
--- NOTE | 2024-10-18 12:24 | Anesthesiology Progress Note ---
Date of Service October 18, 2024 Anesthesia Post Procedure Vital Signs Vital Signs: Temp Pulse Pulse Resp BP Pulse Ox O2 Del Method 10/18/24 12:00 15 103/68 97 Oxymask 10/18/24 11:50 13 100/66 99 Oxymask 10/18/24 11:40 97.0 F L 14 101/66 99 Oxymask 10/18/24 07:30 45 L 10/18/24 06:23 52 L 16 101/65 97 Room Air 10/18/24 03:12 97.9 F 63 18 103/56 L 95 Room Air 10/17/24 22:45 97.9 F 53 L 18 98/59 L 94 Room Air 10/17/24 22:00 44 L 10/17/24 19:22 50 L 10/17/24 19:19 97.9 F 53 L 12 108/76 95 Room Air 10/17/24 19:05 52 L 14 98/56 L 96 10/17/24 18:30 52 L 17 103/70 96 Room Air 10/17/24 17:30 49 L 16 105/60 94 10/17/24 16:00 46 L 16 93/56 L 92 10/17/24 14:00 53 L 18 99/56 L 96 Room Air 10/17/24 13:00 54 L 18 110/68 100 Room Air O2 Flow Rate 10/18/24 12:00 3 10/18/24 11:50 3 10/18/24 11:40 6 10/18/24 07:30 10/18/24 06:23 10/18/24 03:12 10/17/24 22:45 10/17/24 22:00 10/17/24 19:22 10/17/24 19:19 10/17/24 19:05 10/17/24 18:30 10/17/24 17:30 10/17/24 16:00 10/17/24 14:00 10/17/24 13:00 Pain Intensity Right Flank: Pain Intensity: 3 Transfer of Care Handoff Completed per policy Notes Mental Status: alert / awake / arousable and participated in evaluation Patient Amnestic to Procedure: Yes Nausea / Vomiting: adequately controlled Pain: adequately controlled Airway Patency, RR, SpO2: stable & adequate BP & HR: stable & adequate Hydration State: stable & adequate Anesthetic Complications: no major complications apparent and Pt Satisfied with anesthetic care
[2024-10-18 12:25] VITALS: TEMP 97.9
[2024-10-18] MEDS: DIATRIZOATE MEGLUMINE 30% 100ML VIAL INSTIL ONE (12:34)
[2024-10-18] MEDS ORDERED: PHENAZOPYRIDINE HCL 100 MG TAB PO PRN (14:36)
--- NOTE | 2024-10-18 14:41 | Discharge Summary ---
Date of Service October 18, 2024 Admission HPI Per Admitting Provider 43 year old female with PMH significant for depression, allergic rhinitis, exercise induced asthma, and migraines who presents to the ED today with worsening flank pain. Patient was recently admitted to [facility] for sepsis and pneumonia and had an incidental finding of a right sided kidney stone on imaging. She reports she started feeling bladder spasms earlier this week but was otherwise doing well. Two nights ago around 0400 the patient reports severe right flank pain with nausea and vomiting. She notes the pain is intermittent but when present is debilitating and notes it feels worse than child labor. She was seen in our ED yesterday and underwent CT abdomen which revealed an obstructing 2mm right kidney stone with hydronephrosis. She was discharged home on zofran and oxycodone. Patient reports that she tried these medications as well as tylenol but has not been able to keep them down due to vomiting and therefore is still in significant pain. She returned to the ED today because of this. She denies fevers, chills, chest pain, SOB, diarrhea, dysuria, weakness. Admission Exam Per Admitting Provider General/Psych: WD/WN, ill appearing, sitting up in bed, conversing easily Head: normocephalic, atraumatic Eyes: normal inspection, PERRL, conjunctivae pink, anicteric sclerae ENT: external ear and nose normal, oropharynx normal Neck: normal visual inspection, trachea midline Respiratory: normal respiratory effort, lungs clear to auscultation, no wheeze/rales/rhonchi, no accessory muscle use Cardiovascular: regular rate and rhythm, no murmur/rub/gallop Extremities: no cyanosis or clubbing, normal peripheral pulses, no BLE edema Abdomen/GI: normal bowel sounds, soft, no hepatosplenomegaly, tenderness on palpation of right flank Neurologic/MSK: A+Ox3, motor strength 5/5, moves all extremities Skin: no rashes, normal color, warm and dry Principal Diagnosis Obstructive Uropathy Right ureteral stone Discharge Data Allergies Allergy/AdvReac Type Severity Reaction Status Date / Time meperidine [From Demerol] Allergy Severe Rash and Unverified 10/17/24 14:35 Pain Consultations 10/17/24 13:54 ED Decision to Admit Stat 10/17/24 19:21 Consult Urology Routine Procedures Performed Operation Date: 10/18/24 10:00 Actual Procedures p Cystoscopy, Right Retrograde Pyelogram, Ureteroscopy, Stone Basket Extraction, Right Ureteral Stent Insertion(Right) - Andrew Watt, Ordered Studies 10/18/24 [place] retrograde includes kub Routine Hospital Course (1) Kidney stone on right side: (2) Depression: (3) Allergic rhinitis: (4) Exercise-induced asthma: Plan 43 year old female with PMH significant for depression, allergic rhinitis, exercise induced asthma, and migraines who presents to the ED today with worsening flank pain and admitted for right kidney stone. Obstructive Uropathy Secondary to right ureteral stone --CT ABD:Tiny concretion noted in right renal mid calyx. Right kidney shows hydronephrosis and hydroureter up to an obstructing calculus of size 2 mm is noted in right vesicoureteric junction. --S/P Cystoscopy with Right Retrograde Pyelogram, Ureteroscopy, Stone Basket Extraction, Right Ureteral Stent Insertion by on 10/18/24 --Continue IV fluids, Flomax, pain control as needed Appreciate urology help Needs follow-up with urology on discharge Antiemetics as needed Elevated blood sugar HbA1c 5.4 Depression Recently started on lexapro Has not been taking due to illness Prefers to hold while inpt Resume Lexapro as outpatient Allergic rhinitis Zyrtec as needed Exercise-induced asthma Well controlled DVT Prophylaxis: SCDs Code Status: Full Code Disposition Expected discharge home Total Time Total Time Spent Total Time Spent (In Minutes): 54 minutes Discharge Plan Discharge Items Patient Disposition: Home - Self-Care Reason For Visit: KIDNEY STONE Discharge Diagnosis: Obstructive Uropathy Right ureteral stone Condition on Discharge: Fair Activity: Per Instructions section Exercise/Sports: Gradually increase as tolerated Non-emergency contact: Primary Care Provider and Urologist Call non-emergency contact if: you have any medication questions, your symptoms worsen, your pain is concerning for you and you have a fever Follow-up/Referrals: Dominique Cummings NP [Primary Care Provider] - Diet: Regular Addtl Attending Provider Instructions: Follow-up with your primary care physician Dominique Cummings NP in 1 week Follow-up with your urologist Dr. Watt as recommended Seek immediate medical attention if your symptoms reoccur or worsen Please review medication list provided on discharge for any medication changes as instructed. Please call if you have any questions or problems. You can reach a [facility] hospitalist on duty at [facility] 24 hours a day by calling [phone] Pending Studies at Discharge: No Stand-Alone Forms: My [facility], Smoking Cessation Medications and DC Order Prescriptions: New phenazopyridine [Pyridium] 100 mg Tablet 100 mg PO TID PRN (Reason: pain) Qty: 15 0RF Continued oxycodone 5 mg tablet 5 mg PO Q6H PRN (Reason: pain (scale score 7-10)) Qty: 16 0RF Rx Instructions: May cause drowsiness ondansetron 4 mg tablet,disintegrating 4 mg PO Q6H PRN (Reason: nausea and vomiting) Qty: 12 0RF cetirizine [Zyrtec] 10 mg Tablet 10 mg PO DAILY ergocalciferol (vitamin D2) [Vitamin D2] 1,250 mcg (50,000 unit) capsule 50,000 unit PO WK Rx Instructions: Sunday escitalopram oxalate 5 mg tablet 5 mg PO DAILY Discharge Orders: Discharge Order (Routine); Ordered 10/18/24 Ordered By: Rasheed Patel Admission Data Admit Date/Time: 10/17/24 16:59 Attending Provider: Rasheed Patel Admit Provider: Marleny Hidalgo Primary Care Provider: Dominique Cummings Other Providers: Marleny Hidalgo; Andrew Watt
[2024-10-18 15:27] VITALS: BP 94/57; PULSE 56; RESP 16; O2SAT 96
== END 2024-10-18 16:42 | disposition home or self-care (01) ==
LOC: ED 11:59 → INTOOBSV 16:59 → SUATTDRO 16:59 → 2N 16:59